=== PATIENT | female | born 1990 | race Caucasian/White ===

== ENCOUNTER 2016-03-15 08:25 | Emergency (ER) | payer OTHER ==
[2016-03-15] MEDS ORDERED: LIDOCAINE 1% / SOD BICARB 8.4% 20 ML VIAL. IJ ONE (08:45)
[2016-03-15] MEDS ORDERED: DIPHTH,PERTUSS(ACELL),TET TOX 0.5 ML DISP.SYRIN. VAX IM ONE (08:45)
[2016-03-15] MEDS ORDERED: LEVO50TA5 PO (08:49)
[2016-03-15 08:50] VITALS: BP 128/60
[2016-03-15] MEDS ORDERED: birth control pills (08:50)
--- NOTE | 2016-03-15 08:51 | PHYS DOC ---
Adult General Chief Complaint Chief Complaint: LACERATION/AVULSION [facility] HPI Patient is a 26 year old female presents the emergency Department today with complaint of a laceration to her left index finger that occurred within the past hour. 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 She denies any additional injuries or concerns this time. She does not remember when her last tetanus shot was. Review of Systems Review of Systems Constitutional: Denies fever or chills [] Eyes: Denies change in visual acuity, redness, or eye pain [] HENT: Denies nasal congestion or sore throat [] Respiratory: Denies cough or shortness of breath [] Cardiovascular: No additional information not addressed in HPI [] GI: Denies abdominal pain, nausea, vomiting, bloody stools or diarrhea [] : Denies dysuria or hematuria [] Musculoskeletal: Denies back pain or joint pain [] Integument: Denies rash or skin lesions [] Neurologic: Denies headache, focal weakness or sensory changes [] Endocrine: Denies polyuria or polydipsia [] Current Medications Current Medications Current Medications Medications (Trade) Dose Ordered Sig/Dominga Start Time Stop Time Status Last Admin Dose Admin Diphtheria/ Tetanus/Acell Pertussis (Boostrix) 0.5 ml ONCE ONCE 03/15/16 08:45 03/15/16 08:52 DC 03/15/16 09:03 0.5 ML Lidocaine/Sodium Bicarbonate (Buffered Lidocaine 1%) 20 ml 1X ONCE 03/15/16 08:45 03/15/16 08:52 DC 03/15/16 09:01 20 ML Allergies Allergies Allergies Coded Allergies Type Severity Reaction Last Updated Verified codeine Adverse Reaction Unknown nausea/vomiting 03/15/16 Yes Physical Exam Physical Exam Constitutional: Well developed, well nourished, mild distress, non-toxic appearance. HENT: Normocephalic, atraumatic, bilateral external ears normal, oropharynx moist, no oral exudates, nose normal. [] Eyes: PERRLA, EOMI, conjunctiva normal, no discharge. [] Neck: Normal range of motion, no tenderness, supple, no stridor. [] Cardiovascular:Heart rate regular rhythm, no murmur [] Lungs & Thorax: Bilateral breath sounds clear to auscultation [] Abdomen: Bowel sounds normal, soft, no tenderness, no masses, no pulsatile masses. [] Skin: Warm, dry, no erythema, no rash. [] Back: No tenderness, no CVA tenderness. [] Extremities: Left index finger with a approximate 3 cm laceration to the pulp of the palmar aspect of the distal phalanx. This does not involve the DIPJ or the fingernail/nailbed. There is no active bleeding at this time. The laceration does extend into the subcutaneous tissue. Fingers neurovascularly intact with capillary refill less than 2 seconds at the tip Neurologic: Alert and oriented X 3, normal motor function, normal sensory function, no focal deficits noted. [] Psychologic: Affect normal, judgement normal, mood normal. [] Current Patient Data Vital Signs Vital Signs Date Time Temp Pulse Resp B/P Pulse Ox O2 Delivery O2 Flow Rate FiO2 03/15/16 08:50 98.8 83 14 100 Room Air 98.8 EKG EKG [] Radiology/Procedures Radiology/Procedures Procedure note: 3 cm laceration to the palmar aspect of the phalanx of left thumb was anesthetized with buffered 1% lidocaine. Wound was cleansed with Betadine solution and rinsed with saline. Wound was explored for foreign bodies. No foreign bodies were found. Wound margins were approximated utilizing 5-0 nylon in a simple interrupted fashion of a singular closure for total of 7 stitches. Patient tolerated the procedure well. Course & Med Decision Making Course & Med Decision Making Pertinent Labs and Imaging studies reviewed. (See chart for details) [] Dragon Disclaimer Dragon Disclaimer This electronic medical record was generated, in whole or in part, using a voice recognition dictation system. Departure Departure Impression: Primary Impression: Laceration Disposition: 01 HOME, SELF-CARE Condition: IMPROVED Patient Instructions: Diphtheria Toxoid; Tetanus Toxoid Adsorbed, DT, Td, Laceration Care, Adult, [id number] Additional Instructions: 1. Sutures need to be removed in 7-10 days. 2. Discuss with your community association manager case supervisor following up through your employer's workman compensation program for wound management and follow-up appointments. 3. Take the medication as prescribed. 4. Review the discharge instructions provided for self care and reasons to return to the emergency department. Scripts Hydrocodone/Apap 5-325 ([place] 5-325 Tablet)1 Each Tablet1 Tab PO PRN Q6HRS PRN PAIN #10 TAB Prov:PERICO MCNEILL 03/15/16 PERICO MCNEILL Mar 15, 2016 08:51
[2016-03-15] MEDS ORDERED: HYDR-971 PO (09:02)
== END 2016-03-15 09:50 | disposition home or self-care (01) ==
LOC: ER 08:25
DX: S61.211A Laceration without foreign body of left index finger without damage to nail, initial encounter (principal); S61.012A Laceration without foreign body of left thumb without damage to nail, initial encounter; Z88.5 Allergy status to narcotic agent; W26.8XXA Contact with other sharp object(s), not elsewhere classified, initial encounter; Y93.89 Activity, other specified; Y92.89 Other specified places as the place of occurrence of the external cause; Y99.8 Other external cause status
CPT/HCPCS: 12002; 90471; 90715; 99283-25